=== PATIENT | male | born 1985 | race Hispanic/Latino ===

== ENCOUNTER 2017-03-05 07:29 | Emergency (ER) | payer OTHER ==
[2017-03-05 07:29] VITALS: BMI 22.8
[2017-03-05] MEDS ORDERED: Naloxone 0.4 mg/ml Inj (Adult) ONE (08:18)
[2017-03-05] MEDS ORDERED: Naloxone 0.4 mg/ml Inj (Adult) IVP STA (08:19)
[2017-03-05 08:48] LABS: ALB/GLOB RATIO 1.7 (1.0-2.1); ALCOHOL SERUM < 10 mg/dl (0-10); ALKALINE PHOSPHATASE 43 U/L (38-126); ALT/SGPT 40 U/L (21-72); AST/SGOT 22 U/L (17-59); BILIRUBIN,TOTAL 0.3 mg/dl (0.2-1.3); BLOOD UREA NITROGEN 15 mg/dl (9-20); CARBON DIOXIDE 25 mmol/L (22-30); CHLORIDE 103 mmol/L (98-107); GFR AFRICAN-AMERICAN > 60; GLUCOSE,RANDOM 122 mg/dL (75-110); POTASSIUM 3.9 MMOL/L (3.6-5.0); SODIUM 140 mmol/l (132-148)
[2017-03-05 08:55] LABS: BASO # 0.1 K/uL (0.0-0.2); BASO % 0.9 % (0.0-2.0); EOS # 0.6 K/uL (0.0-0.7); EOS % 8.8 % (0.0-4.0); LYMPH # 1.7 K/uL (1.0-4.3); LYMPH % 24.1 % (20.0-40.0); MEAN CELL VOLUME 89.3 fl (80.0-94.0); MEAN CORPUSCULAR HEMOGLOBIN 29.6 pg (27.0-31.0); MEAN CORPUSCULAR HGB CONC 33.1 g/dL (33.0-37.0); MEAN PLATELET VOLUME 8.3 fl (7.2-11.7); MONO # 0.8 K/uL (0.0-0.8); MONO % 12.3 % (0.0-10.0); NEUT # 3.7 K/uL (1.8-7.0); NEUT % 53.9 % (50.0-75.0); NRBC % 0.1 % (0.0-0.0); RED CELL DISTRIBUTION WIDTH 13.2 % (11.5-14.5); WHITE BLOOD COUNT 6.9 K/uL (4.8-10.8)
--- NOTE | 2017-03-05 10:16 | ED PDOC ---
HPI: Psych/Substance Abuse Time Seen by Provider: 03/05/17 07:48 Chief Complaint (Nursing): Substance Abuse Chief Complaint (Provider): Substance Abuse ED Caveat: Intoxicated History Per: EMS History/Exam Limitations: intoxication Onset/Duration Of Symptoms: Mins (prior to arrival) Current Symptoms Are (Timing): Still Present Additional Complaint(s): Alexandro Rose is a 31 year old male who presents to the emergency department via EMS for an evaluation of possible substance abuse when patient was found with abnormal behavior and lethargic at a [facility] prior to arrival. Patient is a poor historian and unable to give medical history due to intoxication. EMS gave nebulizer treatment to patient when he demonstrated asthma/wheezing symptoms in the field. PMD: none provided Past Medical History Reviewed: Nursing Documentation, Vital Signs, Unable To Obtain Vital Signs: Last Vital Signs Temp 97.6 F 03/05/17 07:33 Pulse 85 03/05/17 07:33 Resp 18 03/05/17 07:33 BP 120/70 03/05/17 07:33 Pulse Ox 100 03/05/17 07:33 - Medical History PMH: Anxiety, Asthma, Depression Denies: Chronic Kidney Disease - Family History Family History: States: Unknown Family Hx - Social History Current smoker - smoking cessation education provided: Yes Alcohol: > 2 Drinks/Day - Immunization History Hx Tetanus Toxoid Vaccination: No Hx Influenza Vaccination: No Hx Pneumococcal Vaccination: No - Home Medications Home Medications: Ambulatory Orders Medication Instructions Recorded Albuterol HFA [Ventolin HFA 90 2 puff IH [id number] #1 puff 02/17/17 mcg/actuation (8 g)] Albuterol HFA [Ventolin HFA 90 2 puff IH [id number] PRN #90 puff 02/22/17 mcg/actuation (8 g)] Methylprednisolone [Medrol Dose 4 mg PO DAILY #21 mg 02/22/17 Pack (21 tabs)] Albuterol 0.083% [Albuterol 0.083% 2.5 mg INH PRN PRN #20 neb 03/05/17 Inhal Analia (2.5 mg/3 ml) UD] Prednisone 50 mg PO DAILY #5 tab 03/05/17 - Allergies Allergies/Adverse Reactions: Allergies Allergy/AdvReac Type Severity Reaction Status Date / Time No Known Allergies Allergy Verified 02/17/17 03:35 Review of Systems Review Of Systems: ROS cannot be obtained secondary to pt's inabilty to answer questions. (intoxication) Physical Exam - Reviewed Nursing Documentation Reviewed: Yes Vital Signs Reviewed: Yes - Physical Exam Appears: Positive for: No Acute Distress Head Exam: Positive for: ATRAUMATIC, NORMAL INSPECTION, NORMOCEPHALIC Eye Exam: Positive for: EOMI, Other (pupils pinpoint). Negative for: Normal appearance, PERRL ENT: Positive for: Normal ENT Inspection Neck: Positive for: Normal, Painless ROM, Supple. Negative for: Decreased ROM Cardiovascular/Chest: Positive for: Regular Rate, Rhythm, Chest Non Tender Respiratory: Positive for: Normal Breath Sounds, Wheezing. Negative for: Decreased Breath Sounds, Respiratory Distress Gastrointestinal/Abdominal: Positive for: Normal Exam, Soft. Negative for: Tenderness Extremity: Positive for: Normal ROM. Negative for: Tenderness, Pedal Edema Neurologic/Psych: Positive for: Mood/Affect (groggy/tired appearance), Other ( arousable to physical stimulation and loud sounds). Negative for: Alert - Laboratory Results Result Diagrams: 03/05/17 08:10 03/05/17 08:10 - ECG O2 Sat by Pulse Oximetry: 100 (RA) Pulse Ox Interpretation: Normal - Progress Re-evaluation Time: 13:30 Condition: Re-examined, Improved Medical Decision Making Medical Decision Making: Initial Impression: Substance abuse (opioids vs. ETOH) Initial Plan: * EKG * Alcohol serum * CMP * Drug screen, urine * CBC * Narcan 0.4mg IVP Time: 1100 --Patient is awake and alert but began wheezing. --Duoneb 3ml INH and SOLU-Medrol 125mg IVP ordered. Scribe Attestation: Documented by Ronna Hernandez, acting as a scribe for David Crystal MD. Provider Scribe Attestation: All medical record entries made by the Scribe were at my direction and personally dictated by me. I have reviewed the chart and agree that the record accurately reflects my personal performance of the history, physical exam, medical decision making, and the department course for this patient. I have also personally directed, reviewed, and agree with the discharge instructions and disposition. Disposition - Clinical Impression Clinical Impression: Bronchospasm, acute, Asthma with exacerbation - Patient ED Disposition Is Patient to be Admitted: No Counseled Patient/Family Regarding: Studies Performed, Diagnosis, Need For Followup - Disposition Referrals: [facility] [Outside] Disposition: Routine/Home Disposition Time: 13:31 Condition: GOOD Additional Instructions: Follow up with your PCP in 2-3 days. Prescriptions: Albuterol 0.083% [Albuterol 0.083% Inhal Analia (2.5 mg/3 ml) UD] 2.5 mg INH PRN PRN #20 neb PRN Reason: Shortness Of Breath Prednisone 50 mg PO DAILY #5 tab Instructions: Asthma (ED), Narcotic Abuse (ED)
[2017-03-05] MEDS ORDERED: Albuterol-Ipratrop 3 mg / 0.5 (3 ml) UD INH STA (11:07)
[2017-03-05] MEDS ORDERED: Albuterol-Ipratrop 3 mg / 0.5 (3 ml) UD ONE (11:11)
[2017-03-05 11:20] VITALS: BP 124/88; PULSE 82; RESP 20; TEMP 98.6
[2017-03-05 11:23] VITALS: O2SAT 100
--- NOTE | 2017-03-05 21:08 | CARD ---
APPROVED REPORT EKG Measurement Heart [id number] <Conclusion> Normal sinus rhythm Possible Left atrial enlargement ST elevation, probably due to early repolarization Borderline ECG
== END 2017-03-05 14:07 | disposition home or self-care (01) ==
LOC: H.ER 07:29 → SUPCPDRO 07:29 → H.ER 14:07
DX: J45.901 Unspecified asthma with (acute) exacerbation (principal); J98.01 Acute bronchospasm; F32.9 Major depressive disorder, single episode, unspecified; F41.9 Anxiety disorder, unspecified
CPT/HCPCS: 80053; 80320; 80324; 80345; 80346; 80349; 80353; 80358; 80361; 82948; 83992; 85025; 93005; 94640; 96374; 96375; 99284; J2310; J2930

== ENCOUNTER 2017-04-22 05:22 | Emergency (ER) | payer OTHER ==
[2017-04-22 05:22] VITALS: BMI 22.8
[2017-04-22] MEDS ORDERED: Albuterol-Ipratrop 3 mg / 0.5 (3 ml) UD ONE (05:56)
--- NOTE | 2017-04-22 06:17 | ED PDOC ---
HPI: SOB/CHF/COPD Time Seen by Provider: 04/22/17 05:35 Chief Complaint (Nursing): Shortness Of Breath Chief Complaint (Provider): Shortness Of Breath History Per: Patient History/Exam Limitations: no limitations Onset/Duration Of Symptoms: Hrs (x1) Current Symptoms Are (Timing): Still Present Additional Complaint(s): 31-year-old male with a past medical history of asthma presents to the emergency department complaining of wheezing and shortness of breath for 1 hour. Patient also reports having a cough and mild headache with a subjective fever. Upon arrival, he is afebrile. Patient does smoke cigarettes. He reports using his inhaler without improvement, but states he is not able to use his other home medications at this time. PMD: Dr. Erin Pollock Past Medical History Reviewed: Historical Data, Nursing Documentation, Vital Signs Vital Signs: Last Vital Signs Temp 97.6 F 04/22/17 13:16 Pulse 63 04/22/17 13:16 Resp 18 04/22/17 13:16 BP 122/61 04/22/17 13:16 Pulse Ox 95 04/22/17 13:17 - Medical History PMH: Anxiety, Asthma, Depression Denies: Chronic Kidney Disease - Surgical History Surgical History: No Surg Hx - Family History Family History: States: Unknown Family Hx - Social History Current smoker - smoking cessation education provided: Yes - Immunization History Hx Tetanus Toxoid Vaccination: No Hx Influenza Vaccination: No Hx Pneumococcal Vaccination: No - Home Medications Home Medications: Ambulatory Orders Medication Instructions Recorded Albuterol HFA [Ventolin HFA 90 2 puff IH [id number] #1 puff 02/17/17 mcg/actuation (8 g)] Albuterol HFA [Ventolin HFA 90 2 puff IH [id number] PRN #90 puff 02/22/17 mcg/actuation (8 g)] Methylprednisolone [Medrol Dose 4 mg PO DAILY #21 mg 02/22/17 Pack (21 tabs)] Albuterol 0.083% [Albuterol 0.083% 2.5 mg INH PRN PRN #20 neb 03/05/17 Inhal Analia (2.5 mg/3 ml) UD] Prednisone 50 mg PO DAILY #5 tab 03/05/17 Albuterol 0.083% [Albuterol 0.083% 2.5 mg IH Q4 PRN #20 neb 04/22/17 Inhal Analia (2.5 mg/3 ml) UD] Albuterol 0.083% [Albuterol 0.083% 2.5 mg IH Q4 PRN #20 neb 04/22/17 Inhal Analia (2.5 mg/3 ml) UD] Prednisone 50 mg PO DAILY #4 tab 04/22/17 - Allergies Allergies/Adverse Reactions: Allergies Allergy/AdvReac Type Severity Reaction Status Date / Time No Known Allergies Allergy Verified 02/17/17 03:35 Review of Systems ROS Statement: Except As Marked, All Systems Reviewed And Found Negative Constitutional: Negative for: Fever Cardiovascular: Negative for: Chest Pain Respiratory: Positive for: Cough, Shortness of Breath, Wheezing Neurological: Positive for: Headache Physical Exam - Reviewed Nursing Documentation Reviewed: Yes Vital Signs Reviewed: Yes - Physical Exam Appears: Positive for: Non-toxic, No Acute Distress Head Exam: Positive for: ATRAUMATIC, NORMOCEPHALIC Skin: Positive for: Normal Color, Warm, Dry Eye Exam: Positive for: EOMI, Normal appearance, PERRL ENT: Positive for: Normal ENT Inspection Neck: Positive for: Normal, Painless ROM Cardiovascular/Chest: Positive for: Regular Rate, Rhythm. Negative for: Murmur Respiratory: Positive for: Wheezing (diffuse wheezing bilaterally). Negative for: Respiratory Distress Gastrointestinal/Abdominal: Positive for: Normal Exam, Soft. Negative for: Tenderness Back: Positive for: Normal Inspection. Negative for: Vertebral Tenderness Extremity: Positive for: Normal ROM. Negative for: Pedal Edema, Deformity Neurologic/Psych: Positive for: Alert, Oriented (x3). Negative for: Motor/ Sensory Deficits - ECG O2 Sat by Pulse Oximetry: 95 (RA) Pulse Ox Interpretation: Normal Medical Decision Making Medical Decision Making: Time: 06:20 Initial Impression: Asthma exacerbation Initial Plan: * EKG * Duoneb 3ml INH x2 * Peak Flow pre/post treatment * Prednisone 60 mg PO * Tylenol 650 mg PO * Reevaluation Scribe Attestation: Documented by Alyson Vargas, acting as a scribe for David Crystal MD Provider Scribe Attestation: All medical record entries made by the Scribe were at my direction and personally dictated by me. I have reviewed the chart and agree that the record accurately reflects my personal performance of the history, physical exam, medical decision making, and the department course for this patient. I have also personally directed, reviewed, and agree with the discharge instructions and disposition. Disposition - Clinical Impression Clinical Impression: Asthma with exacerbation - Patient ED Disposition Is Patient to be Admitted: Transfer of Care Counseled Patient/Family Regarding: Studies Performed, Diagnosis - Disposition Referrals: [facility] [Outside] Disposition: Transfer of Care Disposition Time: 07:00 Condition: FAIR Prescriptions: Albuterol 0.083% [Albuterol 0.083% Inhal Analia (2.5 mg/3 ml) UD] 2.5 mg IH Q4 PRN #20 neb PRN Reason: Wheezing Albuterol 0.083% [Albuterol 0.083% Inhal Analia (2.5 mg/3 ml) UD] 2.5 mg IH Q4 PRN #20 neb PRN Reason: Wheezing Prednisone 50 mg PO DAILY #4 tab Instructions: Asthma (ED) Forms: [employer] (Zambian) Patient Signed Over To: Saul Seth III
[2017-04-22] MEDS ORDERED: Albuterol-Ipratrop 3 mg / 0.5 (3 ml) UD INH STA ×3 (06:20→08:18)
[2017-04-22 06:54] VITALS: RESP 18
--- NOTE | 2017-04-22 07:09 | ED PDOC ---
- ECG O2 Sat by Pulse Oximetry: 95 (RA) Medical Decision Making Medical Decision Makin:00 Patient signed out to me by Dr. Crystal pending re-evaluation. Reassess --1:15 Patient's symptoms have improved. Patient is stable for discharge home Scribe Attestation: Documented by Nathan Hernandez acting as a scribe for Saul Seth DO. Disposition - Clinical Impression Clinical Impression: Asthma with exacerbation - Disposition Disposition: Routine/Home Disposition Time: 01:17 Condition: STABLE Forms: [facility] (Swedish)
--- NOTE | 2017-04-22 12:46 | CARD ---
APPROVED REPORT EKG Measurement Heart [id number] <Conclusion> Normal sinus rhythm Normal ECG
[2017-04-22 13:17] VITALS: BP 122/61; PULSE 63; TEMP 97.6
[2017-04-22 13:18] VITALS: O2SAT 95
== END 2017-04-22 13:25 | disposition home or self-care (01) ==
LOC: H.ER 05:22
DX: J45.901 Unspecified asthma with (acute) exacerbation (principal); F17.210 Nicotine dependence, cigarettes, uncomplicated; F32.9 Major depressive disorder, single episode, unspecified; F41.9 Anxiety disorder, unspecified

== ENCOUNTER 2017-05-06 18:33 | Emergency (ER) | payer OTHER ==
[2017-05-06 18:33] VITALS: BMI 22.8
--- NOTE | 2017-05-06 19:33 | ED PDOC ---
HPI: General Adult Time Seen by Provider: 05/06/17 18:44 Chief Complaint (Nursing): Medical Clearance Chief Complaint (Provider): Medical Clearance History Per: Patient History/Exam Limitations: no limitations Additional Complaint(s): Alexandro Ruvalcaba is a 31 y/o male with a past medical history of asthma, who was brought to the emergency department by police for medical clearance. Patient has been under police custody since noon today. Now he is being incarcerated, and due to history of asthma, he was brought to the ER for clearance. Currently , patient denies any chest tightness, shortness of breath, cough, fever, or chills. He reports he uses albuterol as needed. Patient denies any homicidal or suicidal ideation, and hallucinations. PMD: Provider TBD Past Medical History Reviewed: Historical Data, Nursing Documentation, Vital Signs Vital Signs: Last Vital Signs Temp 98.2 F 05/06/17 19:57 Pulse 78 05/06/17 20:37 Resp 18 05/06/17 20:37 BP 138/80 05/06/17 20:37 Pulse Ox 18 L 05/06/17 20:53 - Medical History PMH: Anxiety, Asthma, Depression Denies: Chronic Kidney Disease - Surgical History Surgical History: No Surg Hx - Family History Family History: States: Other - Social History Current smoker - smoking cessation education provided: Yes Alcohol: Occasional - Immunization History Hx Tetanus Toxoid Vaccination: No Hx Influenza Vaccination: No Hx Pneumococcal Vaccination: No - Home Medications Home Medications: Ambulatory Orders Medication Instructions Recorded Albuterol HFA [Ventolin HFA 90 2 puff IH [id number] #1 puff 02/17/17 mcg/actuation (8 g)] Albuterol HFA [Ventolin HFA 90 2 puff IH [id number] PRN #90 puff 02/22/17 mcg/actuation (8 g)] Methylprednisolone [Medrol Dose 4 mg PO DAILY #21 mg 02/22/17 Pack (21 tabs)] Albuterol 0.083% [Albuterol 0.083% 2.5 mg INH PRN PRN #20 neb 03/05/17 Inhal Analia (2.5 mg/3 ml) UD] Prednisone 50 mg PO DAILY #5 tab 03/05/17 Albuterol 0.083% [Albuterol 0.083% 2.5 mg IH Q4 PRN #20 neb 04/22/17 Inhal Analia (2.5 mg/3 ml) UD] Albuterol 0.083% [Albuterol 0.083% 2.5 mg IH Q4 PRN #20 neb 04/22/17 Inhal Analia (2.5 mg/3 ml) UD] Prednisone 50 mg PO DAILY #4 tab 04/22/17 - Allergies Allergies/Adverse Reactions: Allergies Allergy/AdvReac Type Severity Reaction Status Date / Time No Known Allergies Allergy Verified 02/17/17 03:35 Review of Systems ROS Statement: Except As Marked, All Systems Reviewed And Found Negative (as per HPI, otherwise negative) Constitutional: Negative for: Fever, Chills Cardiovascular: Negative for: Chest Pain Respiratory: Negative for: Cough, Shortness of Breath Skin: Positive for: Lesions (on face, from chronic picking per patient) Psych: Negative for: Suicidal ideation (or homicidal), Other (hallucinations) Physical Exam - Reviewed Nursing Documentation Reviewed: Yes Vital Signs Reviewed: Yes - Physical Exam Appears: Positive for: Well, No Acute Distress Head Exam: Positive for: ATRAUMATIC, NORMOCEPHALIC Skin: Positive for: Warm, Rash (multiple superficial abrasions in various stages of healing along right forehead, cheek and mandible) Eye Exam: Positive for: EOMI, PERRL Neck: Positive for: Painless ROM, Supple Cardiovascular/Chest: Positive for: Regular Rate, Rhythm. Negative for: Murmur Respiratory: Positive for: Normal Breath Sounds. Negative for: Wheezing, Respiratory Distress Lymphatic: Negative for: Adenopathy Neurologic/Psych: Positive for: Alert. Negative for: Motor/Sensory Deficits - ECG O2 Sat by Pulse Oximetry: 18 (RA) Medical Decision Making Medical Decision Making: Initial Impression: Chronic asthma Time: 19:07 Plan: Patient is medically and psychiatrically stable for incarceration. Will discharge to law enforcement. Scribe Attestation: Documented by Alyson Vargas, acting as a scribe for Rebecca Sow MD Provider Scribe Attestation: All medical record entries made by the Scribe were at my direction and personally dictated by me. I have reviewed the chart and agree that the record accurately reflects my personal performance of the history, physical exam, medical decision making, and the department course for this patient. I have also personally directed, reviewed, and agree with the discharge instructions and disposition. Disposition - Clinical Impression Clinical Impression: Asthma - Patient ED Disposition Is Patient to be Admitted: No Counseled Patient/Family Regarding: Diagnosis - Disposition Referrals: [facility] [Outside] [facility] [Outside] Disposition: Discharged/Transfer to Law Enforcement Disposition Time: 19:07 Condition: FAIR Additional Instructions: MR RUVALCABA IS MEDICALLY AND PSYCHIATRICALLY STABLE FOR POLICE CUSTODY Instructions: Asthma (ED) Forms: [facility] (Hebrew) - POA Present On Arrival: None
[2017-05-06 19:58] VITALS: PULSE 78; RESP 18; TEMP 98.2
[2017-05-06 20:39] VITALS: BP 138/80
[2017-05-06 20:53] VITALS: O2SAT 18
== END 2017-05-06 20:38 | disposition home or self-care (01) ==
LOC: H.ER 18:33
DX: Z02.89 Encounter for other administrative examinations (principal); J45.909 Unspecified asthma, uncomplicated; F32.9 Major depressive disorder, single episode, unspecified; F41.9 Anxiety disorder, unspecified

== ENCOUNTER 2017-05-13 08:36 | Emergency (ER) | payer OTHER ==
[2017-05-13 08:39] VITALS: BP 140/89; PULSE 95; RESP 16; TEMP 97.6; O2SAT 98; BMI 21.2
--- NOTE | 2017-05-13 09:11 | ED PDOC ---
HPI: General Adult Time Seen by Provider: 05/13/17 09:04 Chief Complaint (Nursing): Medical Clearance History Per: Other Additional Complaint(s): Brought by [employer] for medical and psychiatric clearance prior to incarceration. No C/o Past Medical History Vital Signs: Last Vital Signs Temp 97.6 F 05/13/17 08:38 Pulse 95 H 05/13/17 08:38 Resp 16 05/13/17 08:38 BP 140/89 05/13/17 08:38 Pulse Ox 98 05/13/17 09:12 - Medical History PMH: Anxiety, Asthma, Depression Denies: Chronic Kidney Disease - Family History Family History: States: Unknown Family Hx - Immunization History Hx Tetanus Toxoid Vaccination: No Hx Influenza Vaccination: No Hx Pneumococcal Vaccination: No - Home Medications Home Medications: Ambulatory Orders Medication Instructions Recorded Albuterol HFA [Ventolin HFA 90 2 puff IH [id number] #1 puff 02/17/17 mcg/actuation (8 g)] Albuterol HFA [Ventolin HFA 90 2 puff IH [id number] PRN #90 puff 02/22/17 mcg/actuation (8 g)] Methylprednisolone [Medrol Dose 4 mg PO DAILY #21 mg 02/22/17 Pack (21 tabs)] Albuterol 0.083% [Albuterol 0.083% 2.5 mg INH PRN PRN #20 neb 03/05/17 Inhal Analia (2.5 mg/3 ml) UD] Prednisone 50 mg PO DAILY #5 tab 03/05/17 Albuterol 0.083% [Albuterol 0.083% 2.5 mg IH Q4 PRN #20 neb 04/22/17 Inhal Analia (2.5 mg/3 ml) UD] Albuterol 0.083% [Albuterol 0.083% 2.5 mg IH Q4 PRN #20 neb 04/22/17 Inhal Analia (2.5 mg/3 ml) UD] Prednisone 50 mg PO DAILY #4 tab 04/22/17 - Allergies Allergies/Adverse Reactions: Allergies Allergy/AdvReac Type Severity Reaction Status Date / Time No Known Allergies Allergy Verified 05/13/17 08:44 Review of Systems ROS Statement: Except As Marked, All Systems Reviewed And Found Negative Physical Exam - Reviewed Nursing Documentation Reviewed: Yes Vital Signs Reviewed: Yes - Physical Exam Appears: Positive for: Non-toxic, No Acute Distress Head Exam: Positive for: ATRAUMATIC, NORMAL INSPECTION, NORMOCEPHALIC Skin: Positive for: Warm. Negative for: Normal Color (Multiple scabbed trak hartmann on hands bilat. No erythema or drainage) Eye Exam: Positive for: EOMI, Normal appearance, PERRL ENT: Positive for: Normal ENT Inspection Neck: Positive for: Normal, Painless ROM Cardiovascular/Chest: Positive for: Regular Rate, Rhythm Respiratory: Positive for: CNT, Normal Breath Sounds Gastrointestinal/Abdominal: Positive for: Normal Exam, Bowel Sounds, Soft Back: Positive for: Normal Inspection Extremity: Positive for: Normal ROM Neurologic/Psych: Negative for: Alert (Sleepy arousable), Motor/Sensory Deficits - ECG O2 Sat by Pulse Oximetry: 98 Disposition - Clinical Impression Clinical Impression: Asthma, Opioid dependence - Patient ED Disposition Is Patient to be Admitted: No Counseled Patient/Family Regarding: Diagnosis, Need For Followup - Disposition Referrals: [facility] [Outside] Disposition: Routine/Home Disposition Time: 09:10 Condition: FAIR Additional Instructions: Medically and psychiatrically cleared for incarceration Instructions: Asthma (ED) Forms: [facility] (Indonesian)
== END 2017-05-13 09:50 | disposition home or self-care (01) ==
LOC: H.ER 08:36
DX: F11.20 Opioid dependence, uncomplicated; F32.9 Major depressive disorder, single episode, unspecified; F41.9 Anxiety disorder, unspecified; J45.909 Unspecified asthma, uncomplicated

== ENCOUNTER 2017-05-15 04:14 | Emergency (ER) | payer OTHER ==
[2017-05-15] MEDS ORDERED: Albuterol-Ipratrop 3 mg / 0.5 (3 ml) UD INH STA (04:27)
--- NOTE | 2017-05-15 04:28 | ED PDOC ---
HPI: CCC, URI, Sore Throat Time Seen by Provider: 05/15/17 04:20 Chief Complaint (Provider): "Asthma" History Per: Patient Additional Complaint(s): Alexandro Rose is a 31 y/o male with a past medical history of asthma, who was brought to the emergency department by police for medical clearance. Patient has been under police custody since noon today. Now he is being incarcerated, and due to history of asthma, he was brought to the ER for clearance. Currently , patient denies any chest tightness, shortness of breath, cough, fever, or chills. He reports he uses albuterol as needed. Patient denies any homicidal or suicidal ideation, and hallucinations. PMD: Provider TBD Past Medical History - Medical History PMH: Anxiety, Asthma, Depression Denies: Diabetes, Hepatitis, HIV, HTN, Chronic Kidney Disease, Seizures, Sexually Transmitted Disease - Family History Family History: States: Unknown Family Hx - Immunization History Hx Tetanus Toxoid Vaccination: No Hx Influenza Vaccination: No Hx Pneumococcal Vaccination: No - Home Medications Home Medications: Ambulatory Orders Medication Instructions Recorded Albuterol HFA [Ventolin HFA 90 2 puff IH [id number] #1 puff 02/17/17 mcg/actuation (8 g)] Albuterol HFA [Ventolin HFA 90 2 puff IH [id number] PRN #90 puff 02/22/17 mcg/actuation (8 g)] Methylprednisolone [Medrol Dose 4 mg PO DAILY #21 mg 02/22/17 Pack (21 tabs)] Albuterol 0.083% [Albuterol 0.083% 2.5 mg INH PRN PRN #20 neb 03/05/17 Inhal Analia (2.5 mg/3 ml) UD] Prednisone 50 mg PO DAILY #5 tab 03/05/17 Albuterol 0.083% [Albuterol 0.083% 2.5 mg IH Q4 PRN #20 neb 04/22/17 Inhal Analia (2.5 mg/3 ml) UD] Albuterol 0.083% [Albuterol 0.083% 2.5 mg IH Q4 PRN #20 neb 04/22/17 Inhal Analia (2.5 mg/3 ml) UD] Prednisone 50 mg PO DAILY #4 tab 04/22/17 - Allergies Allergies/Adverse Reactions: Allergies Allergy/AdvReac Type Severity Reaction Status Date / Time No Known Allergies Allergy Verified 05/13/17 08:44
[2017-05-15 04:31] VITALS: BP 143/90; PULSE 83; RESP 16; TEMP 98.4; O2SAT 97; BMI 20.5
[2017-05-15] MEDS ORDERED: Albuterol-Ipratrop 3 mg / 0.5 (3 ml) UD ONE (04:53)
== END 2017-05-15 06:04 ==
LOC: H.ER 04:14
DX: J45.909 Unspecified asthma, uncomplicated

== ENCOUNTER 2017-05-21 03:55 | Emergency (ER) | payer OTHER ==
[2017-05-21 03:55] VITALS: BMI 21.2
[2017-05-21 04:13] VITALS: BP 123/82; PULSE 92; RESP 18; TEMP 98.7; O2SAT 97
[2017-05-21] MEDS ORDERED: Albuterol-Ipratrop 3 mg / 0.5 (3 ml) UD INH STA (04:47)
--- NOTE | 2017-05-21 04:49 | ED PDOC ---
HPI: General Adult Time Seen by Provider: 05/21/17 04:44 Chief Complaint (Nursing): Cough, Cold, Congestion Chief Complaint (Provider): asthma History Per: Patient Additional Complaint(s): 31-year-old male presents to emergency department with asthma exacerbation. Patient is requesting breathing treatment. He denies fever or chills. He has had slight cough for the past couple of days. No chest pain. Past Medical History Reviewed: Historical Data, Nursing Documentation, Vital Signs Vital Signs: Last Vital Signs Temp 98.7 F 05/21/17 04:10 Pulse 92 H 05/21/17 04:10 Resp 18 05/21/17 04:10 BP 123/82 05/21/17 04:10 Pulse Ox 97 05/21/17 04:50 - Medical History PMH: Anxiety, Asthma, Depression - Family History Family History: States: No Known Family Hx - Living Arrangements Living Arrangements: Other (non domiciled) - Social History Current smoker - smoking cessation education provided: Yes (3-4 cigarettes per day) Alcohol: None Drugs: Opiates - Home Medications Home Medications: Ambulatory Orders Medication Instructions Recorded Albuterol HFA [Ventolin HFA 90 2 puff IH [id number] #1 puff 02/17/17 mcg/actuation (8 g)] Albuterol HFA [Ventolin HFA 90 2 puff IH [id number] PRN #90 puff 02/22/17 mcg/actuation (8 g)] Methylprednisolone [Medrol Dose 4 mg PO DAILY #21 mg 02/22/17 Pack (21 tabs)] Albuterol 0.083% [Albuterol 0.083% 2.5 mg INH PRN PRN #20 neb 03/05/17 Inhal Analia (2.5 mg/3 ml) UD] Prednisone 50 mg PO DAILY #5 tab 03/05/17 Albuterol 0.083% [Albuterol 0.083% 2.5 mg IH Q4 PRN #20 neb 04/22/17 Inhal Analia (2.5 mg/3 ml) UD] Albuterol 0.083% [Albuterol 0.083% 2.5 mg IH Q4 PRN #20 neb 04/22/17 Inhal Analia (2.5 mg/3 ml) UD] Prednisone 50 mg PO DAILY #4 tab 04/22/17 Albuterol HFA [Ventolin HFA 90 1 puff IH ASDIR #1 unit 05/21/17 mcg/actuation (8 g)] Prednisone 50 mg PO DAILY #5 tablet 05/21/17 - Allergies Allergies/Adverse Reactions: Allergies Allergy/AdvReac Type Severity Reaction Status Date / Time No Known Allergies Allergy Verified 05/13/17 08:44 Review of Systems ROS Statement: Except As Marked, All Systems Reviewed And Found Negative Constitutional: Negative for: Fever Cardiovascular: Negative for: Chest Pain Respiratory: Positive for: Cough, Shortness of Breath, Wheezing Gastrointestinal: Negative for: Nausea, Vomiting Physical Exam - Reviewed Nursing Documentation Reviewed: Yes Vital Signs Reviewed: Yes - Physical Exam Appears: Positive for: Well, Non-toxic, No Acute Distress Skin: Negative for: Rash Eye Exam: Positive for: Normal appearance Cardiovascular/Chest: Positive for: Regular Rate, Rhythm Respiratory: Positive for: Wheezing (Bilateral inspiratory and expiratory wheezing). Negative for: Accessory Muscle Use, Rales, Rhonchi Neurologic/Psych: Positive for: Alert, Oriented, Gait (steady) - ECG O2 Sat by Pulse Oximetry: 97 Pulse Ox Interpretation: Normal Nebulizer Treatments/Peak Flow - Duonebs Number of Bronchodilator Doses given?: 2 (duoneb) - Pre/Post Peak Flow Pre Treatment Peak Flow: 250 Post treatment Peak Flow: 300 - Steroid Treatment Steroid: Oral - Clinical Response Clinical Response: Improved Medical Decision Making Medical Decision Makin-year-old male with asthma exacerbation. Plan: Duoneb x 2 Prednisone oral dose Patient feels better after meds were administered. Prescriptions provided for prednisone and albuterol inhaler. Patient was referred to clinic for follow-up. Disposition - Clinical Impression Clinical Impression: Asthma - Patient ED Disposition Is Patient to be Admitted: No Counseled Patient/Family Regarding: Diagnosis, Need For Followup, Rx Given - Disposition Referrals: [facility] [Outside] Disposition: Routine/Home Disposition Time: 04:48 Condition: STABLE Additional Instructions: Take meds as directed. Follow up with clinic. Prescriptions: Albuterol HFA [Ventolin HFA 90 mcg/actuation (8 g)] 1 puff IH ASDIR #1 unit Prednisone 50 mg PO DAILY #5 tablet Instructions: Asthma (ED) Forms: [email or web address] (Azeri)
[2017-05-21] MEDS ORDERED: Albuterol-Ipratrop 3 mg / 0.5 (3 ml) UD ONE (04:54)
== END 2017-05-21 06:25 | disposition home or self-care (01) ==
LOC: H.ER 03:55
DX: J45.901 Unspecified asthma with (acute) exacerbation (principal); F17.210 Nicotine dependence, cigarettes, uncomplicated; Z86.59 Personal history of other mental and behavioral disorders